=== PATIENT | female | born 1995 | race Caucasian/White ===

== ENCOUNTER 2018-02-03 17:02 | Emergency (ER) | payer MEDICAID ==
[~2018-02-03] VITALS: Ht 165.1 cm; Wt 140.6 kg
[2018-02-03 17:15] VITALS: Ht 165.1 cm; Wt 140.6 kg
[2018-02-03 17:56] LABS: BASOPHIL % 0.7 % (0-2); PLATELET COUNT 321 x10^3mcL (130-400)
[2018-02-03 18:06] LABS: CARBON DIOXIDE 25.2 mmol/L (21-32); CHLORIDE SERUM 108 mmol/L (98-107); CREATININE SERUM 0.7 mg/dL (0.6-1.0); GFR1 > 60 mL/min; GLUCOSE SERUM 118 mg/dL (74-106); POTASSIUM SERUM 3.4 mmol/L (3.5-5.1); SODIUM SERUM 145 mmol/L (136-145)
[2018-02-03 18:10] LABS: ALKALINE PHOSPHATASE 63 U/L (46-116); ALT/SGPT 14 U/L (14-59); AST/SGOT 14 U/L (15-37); BILIRUBIN TOTAL 0.21 mg/dL (0.20-1.00); TOTAL PROTEIN, SERUM 6.9 g/dL (6.4-8.2)
[2018-02-03 20:00] VITALS: BP 137/76
[2018-02-03] MEDS ORDERED: LEVOTHYROXIN0.125 M2 PO (20:13)
[2018-02-03 20:46] LABS: MAGNESIUM 1.7 mg/dL (1.8-2.4)
[2018-02-03 20:48] LABS: CHOLESTEROL/HDL RATIO 2.1
[2018-02-03 20:52] LABS: T3 TOTAL 2.29 ng/mL
[2018-02-03 21:14] LABS: FREE T4 0.66 ng/dL (0.76-1.46); FREE THYROXINE INDEX 1.8 ug/dL (1.4-4.5); T4(THYROXINE) 8.3 ug/dL (4.7-13.3)
== END 2018-02-03 21:32 | disposition left against medical advice (07) ==
LOC: ED 17:02 → DU 20:16 → ED 20:16
PROVIDERS: Emergency Medicine; Student in an Organized Health Care Education/Training Program
DX: O02.1 Missed abortion (principal); Z3A.16 16 weeks gestation of pregnancy; Z88.6 Allergy status to analgesic agent
CPT/HCPCS: 36415; 84439; J7030; Q0092

== ENCOUNTER 2018-02-09 09:17 | Inpatient (IN) | payer MEDICAID ==
[~2018-02-09] VITALS: Ht 165.1 cm; Wt 138.8 kg
[2018-02-09 09:17] VITALS: Ht 165.1 cm; Wt 138.8 kg
[~2018-02-09 09:17] MED LIST: LEVOTHYROXIN0.125 M2 PO
[2018-02-09 10:29] LABS: BASOPHIL % 0.3 % (0-2); PLATELET COUNT 302 x10^3mcL (130-400)
[2018-02-09 10:39] LABS: RED CELL DISTRIBUTION WIDTH 16.8 % (11.5-14.5)
[2018-02-09] MEDS ORDERED: PROAIR HFA8.5 GM INH (11:11)
[2018-02-09] MEDS ORDERED: ATA25 PO (11:11)
[2018-02-09] MEDS ORDERED: PRENATAL LOW IR1 TA1 PO (11:11)
[2018-02-09] MEDS ORDERED: APAP500 MG PO (11:12)
[2018-02-09 12:09] LABS: MAGNESIUM 1.8 mg/dL (1.8-2.4); PHOSPHOROUS 2.8 mg/dL (2.5-4.9)
[2018-02-09 12:10] LABS: CHOLESTEROL/HDL RATIO 2.2
[2018-02-09 12:12] LABS: T3 TOTAL 1.96 ng/mL
[2018-02-09 12:24] LABS: FREE T4 0.67 ng/dL (0.76-1.46); FREE THYROXINE INDEX 1.6 ug/dL (1.4-4.5); T4(THYROXINE) 7.1 ug/dL (4.7-13.3)
[2018-02-09 12:29] VITALS: BP 113/63
[2018-02-09 13:07] VITALS: BP 113/63
[2018-02-09 17:07] VITALS: BP 109/58
[2018-02-09 19:47] LABS: BASOPHIL % 0.2 % (0-2); PLATELET COUNT 315 x10^3mcL (130-400)
[2018-02-09 19:53] LABS: RED CELL DISTRIBUTION WIDTH 16.9 % (11.5-14.5)
[2018-02-09 20:45] VITALS: BP 130/59
[2018-02-10 06:12] VITALS: BP 124/59
[2018-02-10 07:04] LABS: BASOPHIL % 0.4 % (0-2); PLATELET COUNT 278 x10^3mcL (130-400)
[2018-02-10 07:24] LABS: CALCIUM 7.8 mg/dL (8.5-10.1); CARBON DIOXIDE 22.6 mmol/L (21-32); CHLORIDE SERUM 106 mmol/L (98-107); CREATININE SERUM 0.7 mg/dL (0.6-1.0); GFR1 > 60 mL/min; GLUCOSE SERUM 87 mg/dL (74-106); MAGNESIUM 1.8 mg/dL (1.8-2.4); PHOSPHOROUS 3.7 mg/dL (2.5-4.9); SODIUM SERUM 140 mmol/L (136-145)
[2018-02-10 07:26] LABS: RED CELL DISTRIBUTION WIDTH 17.5 % (11.5-14.5)
[2018-02-10 12:42] LABS: BASOPHIL % 0.3 % (0-2); PLATELET COUNT 269 x10^3mcL (130-400); RED CELL DISTRIBUTION WIDTH 17.5 % (11.5-14.5)
[2018-02-10 13:10] VITALS: BP 108/49
[2018-02-10 16:41] VITALS: BP 113/59
[2018-02-10 20:11] VITALS: BP 111/55
[2018-02-11 05:39] VITALS: BP 106/54
[2018-02-11 07:21] LABS: CARBON DIOXIDE 23.6 mmol/L (21-32); CHLORIDE SERUM 105 mmol/L (98-107); CREATININE SERUM 0.6 mg/dL (0.6-1.0); GFR1 > 60 mL/min; GLUCOSE SERUM 82 mg/dL (74-106); POTASSIUM SERUM 3.9 mmol/L (3.5-5.1); SODIUM SERUM 139 mmol/L (136-145)
[2018-02-11 08:11] VITALS: BP 111/47
[2018-02-11 08:59] LABS: BASOPHIL % 0.5 % (0-2); PLATELET COUNT 288 x10^3mcL (130-400)
[2018-02-11 09:00] LABS: RED CELL DISTRIBUTION WIDTH 17.2 % (11.5-14.5)
[2018-02-11] MEDS ORDERED: LEVAQUIN750 MG PO (10:24)
[2018-02-11] MEDS ORDERED: FERROUS SULFAT325 M2 PO (10:25)
[2018-02-11 11:22] VITALS: BP 111/47
== END 2018-02-11 15:23 | disposition home or self-care (01) | DRG 564 ==
LOC: ED 09:17 → DU 11:26 → MU 02-10 22:28
PROVIDERS: Emergency Medicine; Family Medicine Sports Medicine
PROC: 3E033VJ Introduction of Other Hormone into Peripheral Vein, Percutaneous Approach (ICD-10-PCS; principal; 2018-02-09)
DX: O03.4 Incomplete spontaneous abortion without complication (principal); O26.891 Other specified pregnancy related conditions, first trimester; E03.9 Hypothyroidism, unspecified; O02.89 Other abnormal products of conception; J45.909 Unspecified asthma, uncomplicated; D64.9 Anemia, unspecified; E87.6 Hypokalemia; Z88.6 Allergy status to analgesic agent; Z88.1 Allergy status to other antibiotic agents; Z88.8 Allergy status to other drugs, medicaments and biological substances
CPT/HCPCS: 83880; 84439; J2270; J2405; J2590; J2916; J7030; Q0092